=== PATIENT | male | born 1965 | race Hispanic/Latino ===

== ENCOUNTER 2022-07-15 22:48 | Emergency (ER) | payer OTHER ==
[~2022-07-15] VITALS: Ht 177.8 cm; Wt 113.4 kg
--- NOTE | 2022-07-15 22:55 | NUR ---
ARRIVAL PT AMBULATORY INTO ER WITH NO DISTRESS ON RA, SEE TRIAGE ASSESSMENT. HISTORY AND STATUS OBTAINED. VS AND ASSESSMENT COMPLETE CHARTED. DR AUGUST NOTIFIED OF PT ARRIVAL.
[2022-07-15 23:03] VITALS: BP 157/76
--- NOTE | 2022-07-15 23:09 | ER.PDOC ---
General Chief Complaint: Dizziness Stated Complaint: DIZZINESS,SOB,POSS SINUS INFECTION TRAVEL OUT OF US: No Time seen by MD: 23:08 History of Present Illness Initial Comments 56-year-old male presents for evaluation of shortness of breath disorientation and dizziness. Symptoms have been intermittently present x2 weeks. 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 Dizziness is made worse with head movement. Patient denies fever Review of Systems Constitutional: see HPI EENTM: no symptoms reported Respiratory: no symptoms reported Cardiovascular: no symptoms reported Gastrointestinal: no symptoms reported Genitourinary: no symptoms reported Musculoskeletal: no symptoms reported Skin: no symptoms reported Psychiatric/Neurological: see HPI Hematologic/Lymphatic: no symptoms reported Immunological/Allergic: no symptoms reported All Other Systems: Reviewed and Negative Physical Exam Comments General: Patient no acute distress appears stated age HEENT: Normocephalic, atraumatic, EOM intact, normal bilateral TM Neck: Supple, full ROM Chest: No distress, normal effort Cardiovascular: Regular rate Extremities: No evidence of trauma, normal ROM Neuro: Able to move all extremities Psych: Appropriate mood and affect Abdomen: Nondistended Results/Orders Results/Orders Orders - KEERTHI AUGUST DO Ct Head Wo Contrast (07/15/22 23:06) Cbc With Auto Diff (07/15/22 23:06) Comprehensive Metabolic Panel (07/15/22 23:06) Lactic Acid(Ml) (07/15/22 23:06) Urinalysis (07/15/22 23:06) Troponin I High Sensitivity (07/15/22 23:06) Xr Chest 1v (07/15/22 23:06) EKG (07/15/22 23:06) D-Dimer (07/15/22 23:06) Meclizine Hcl (Meclizine Hcl) (07/15/22 23:30) Amoxicillin/Potassium Clav (Augmentin 87 (07/16/22 00:00) Dexamethasone (Decadron) (07/15/22 23:34) Dexamethasone (Decadron) (07/15/22 23:43) Meclizine Hcl (Meclizine Hcl) (07/15/22 23:43) Amoxicillin/Potassium Clav (Augmentin 87 (07/15/22 23:44) Vital Signs Date Time Temp Pulse Resp B/P (MAP) Pulse Ox O2 Delivery O2 Flow Rate FiO2 07/15/22 23:03 98.1 67 18 157/76 (103) 97 Room Air* 0 21 07/15/22 23:03 98.1 67 18 97 07/15/22 23:03 98.1 67 18 Administered Medications Medications (Trade) Dose Ordered Sig/Justo Route PRN Reason Start Time Stop Time Status Last Admin Dose Admin Amoxicillin/ Clavulanate Potassium (Augmentin 875mg) 1 each OT ONCE PO 07/16/22 00:00 07/16/22 00:01 DC 07/15/22 23:44 1 EACH Dexamethasone (Decadron) 12 mg STAT STAT PO 07/15/22 23:34 07/15/22 23:35 DC 07/15/22 23:44 12 MG Meclizine HCl (Meclizine HCl) 25 mg OT ONCE PO 07/15/22 23:30 07/15/22 23:31 DC 07/15/22 23:44 25 MG Laboratory Tests Test 07/15/22 23:25 White Blood Count 8.0 10^3/uL (4.5-11.0) Red Blood Count 4.87 10^6/uL (4.50-5.90) Hemoglobin 15.3 g/dL (13.9-16.3) Hematocrit 44.1 % (37.0-53.0) Mean Corpuscular Volume 90.6 fL (78-100) Mean Corpuscular Hemoglobin 31.4 pg (26-34) Mean Corpuscular Hemoglobin Concent 34.7 g/dL (33-36.5) Red Cell Distribution Width 13.0 % (11.5-14.5) Platelet Count 233 10^3/uL (150-400) Mean Platelet Volume 10.1 fL (7.8-11.0) Neutrophils (%) (Auto) 46.5 % (41.0-85.0) Lymphocytes (%) (Auto) 42.2 % (24.0-44.0) Monocytes (%) (Auto) 8.2 % (5.0-12.0) Neutrophils # (Auto) 3.7 10^3/uL (1.8-7.7) Lymphocytes # (Auto) 3.38 10^3/uL1 (1.0-4.8) Monocytes # (Auto) 0.7 10^3/uL (0.3-0.8) Absolute Immature Granulocyte (auto 0.01 10^3 u/L (0-2) Absolute Eosinophils (auto) 0.2 10^3/uL (0.0-0.2) Immature Granulocytes % 0.10 % (0.00-0.50) Eosinophils % 2.5 % (0.0-5.0) Basophils % 0.5 % (0.0-0.2) H Basophils # 0.0 10^3/uL (0.0-0.1) D-Dimer < 0.19 mg/L (0.19-0.49) L Urine Collection Type CCMS Urine Color YELLOW Urine Appearance CLEAR Urine Bilirubin NEGATIVE (NEGATIVE) Urine Ketones NEGATIVE (NEGATIVE) Urine Specific [place] 1.015 (1.005-1.030) Urine pH 6.0 (4.5-8.0) Urine Protein NEGATIVE (NEGATIVE) Urine Urobilinogen 0.2 E.U./dL (0.2) Urine Nitrate NEGATIVE (NEGATIVE) Urine Leukocyte Esterase NEGATIVE (NEGATIVE) Urine Glucose (Auto)(UA) NEGATIVE (NEGATIVE) Urine Blood NEGATIVE (NEGATIVE) Sodium Level 142 mmol/L (132-145) Potassium Level 3.8 mmol/L (3.6-5.2) Chloride Level 105.0 mmol/L (96-109) Carbon Dioxide Level 25.2 mmol/L (20.0-32) Anion Gap 15.6 Blood Urea Nitrogen 11 mg/dL (7-18) Creatinine 1.18 mg/dL (0.59-1.40) Estimated GFR () 77.5 (>/=60) Est GFR (CKD-EPI)(Non-Afr [place]) 64.1 (>/=60) BUN/Creatinine Ratio 9.0 (10.0-20.0) L Glucose Level 132 mg/dL (70-110) H Lactic Acid Level 1.2 mmol/L (0.5-1.9) Calcium Level 8.9 mg/dL (8.4-10.5) Total Bilirubin 0.4 mg/dL (0.2-1.0) Aspartate Amino Transferase (AST) 16 U/L (0-35) Alanine Aminotransferase (ALT) 32 U/L (12-78) Alkaline Phosphatase 80 U/L (50-136) Troponin I High Sensitivity 7 ng/L (0-75) Total Protein 7.1 g/dL (6.4-8.2) Albumin 4.1 g/dL (3.4-5.0) Globulin 3.0 Albumin/Globulin Ratio 1.366 Progress Progress Work-up consistent with sinusitis. Patient be started on Augmentin. Patient given single dose of dexamethasone. Patient stable for discharge ER DEPART Departure Time of Disposition: 00:43 Disposition: 01 HOME / SELF CARE / HOMELESS Impression: Primary Impression: Sinusitis Condition: Stable Referrals: PCP,UNKNOWN (PCP) PRIMARY CARE PROVIDER Additional Instructions: 1) Please follow-up with your primary care doctor in the next 1-2 days. Please call tomorrow for an appointment. If you cannot follow-up with your primary care doctor please return to the ED for any urgent issues. 2) If you have any worsening of symptoms or any other concerns please return to the ED immediately. 3) Please continue taking your home medications as directed. 4) If you were given any prescriptions, please take them as directed. Do not operate heavy machinery while taking narcotic medications. Duration or Time Spent with Pa: 15 Problem Qualifiers Primary Impression: Sinusitis Sinusitis location: unspecified location Chronicity: acute Recurrence: non-recurrent Qualified Codes: J01.90 - Acute sinusitis, unspecified KEERTHI AUGUST DO Jul 15, 2022 23:09
--- NOTE | 2022-07-15 23:12 | NUR ---
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
--- NOTE | 2022-07-15 23:20 | NUR ---
CT PT BACK FROM CT IN STABLE CONDITION
--- NOTE | 2022-07-15 23:27 | DIREP ---
PROCEDURE:CHEST 1 VIEW COMPARISON:None. INDICATIONS:sob FINDINGS: LUNGS/PLEURA:No significant pulmonary parenchymal abnormalities. No effusions. No pneumothorax. VASCULATURE:Normal. Unremarkable pulmonary vasculature. CARDIAC:Normal. No cardiac silhouette abnormality or cardiomegaly. MEDIASTINUM:Normal. No visible mass or adenopathy. BONES:Normal. No fracture or visible bony lesion. OTHER:Negative. CONCLUSION:No acute pulmonary process. Dictated by: Frandy Mai M.D. on 07/15/2022 at 11:24 PM
--- NOTE | 2022-07-15 23:30 | DIREP ---
PROCEDURE:CT HEAD OR BRAIN W/O CONTRAST COMPARISON:None. INDICATIONS:vertigo TECHNIQUE:CT images were created without intravenous contrast. FINDINGS: VENTRICLES:The ventricles are normal in size and configuration. CEREBRUM:Normal cerebral morphology with appropriate nielson white matter differentiation. CEREBELLUM:Negative. BRAINSTEM:Negative. BASAL CISTERNS:Negative. HEMORRHAGE (Vol L*W*H*.52):No MASS LESION:No ACUTE INFARCT:No SKULL:Normal. SINUSES:Near complete opacification of the right maxillary sinus. The remaining sinuses are clear. OTHER:None CONCLUSION:1. No acute intracranial process. 2. Near complete opacification of the right maxillary sinus. Dictated by: Frandy Mai M.D. on 07/15/2022 at 11:27 PM
--- NOTE | 2022-07-15 23:38 | PCM.EKG ---
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
[2022-07-15] MEDS ORDERED: DECADRON ONE (23:43)
[2022-07-15] MEDS ORDERED: MECLIZINE HCL ONE (23:43)
[2022-07-15] MEDS: DECADRON PO STA (23:44)
[2022-07-15] MEDS: MECLIZINE HCL PO ONE (23:44)
[2022-07-15] MEDS ORDERED: AUGMENTIN 875MG ONE (23:44)
[2022-07-15] MEDS: AUGMENTIN 875MG PO ONE (23:44)
[2022-07-15 23:45] LABS: BASOPHIL % 0.5 % (0.0-0.2); EOSINOPHIL # 0.2 10^3/uL (0.0-0.2); EOSINOPHIL % 2.5 % (0.0-5.0); LYMPHOCYTES # 3.38 10^3/uL1 (1.0-4.8); LYMPHOCYTES % 42.2 % (24.0-44.0); MEAN CORP HGB 31.4 pg (26-34); MONOCYTES # 0.7 10^3/uL (0.3-0.8); MONOCYTES % 8.2 % (5.0-12.0); NEUTROPHIL # 3.7 10^3/uL (1.8-7.7); NEUTROPHILS % 46.5 % (41.0-85.0); PLATELET COUNT 233 10^3/uL (150-400)
[2022-07-16 00:05] LABS: BILIRUBIN,URINE NEGATIVE (NEGATIVE); UROBILINOGEN,URINE 0.2 E.U./dL (0.2)
[2022-07-16 00:13] LABS: CARBON DIOXIDE 25.2 mmol/L (20.0-32)
[2022-07-16 00:46] VITALS: BP 148/72
== END 2022-07-16 00:48 | disposition home or self-care (01) ==
LOC: ER 22:48
DX: J01.90 Acute sinusitis, unspecified (principal)
CPT/HCPCS: 99285; 70450; 71045; 81003; 80053; 85025; 36415; 85379; 84484; 83605; 93005; J8540; J8597